=== PATIENT | male | born 1995 | race Caucasian/White ===

== ENCOUNTER 2017-04-16 10:59 | Emergency (ER) | payer MEDICAID, OTHER ==
[~2017-04-16] VITALS: Wt 63.6 kg
[2017-04-16] MEDS ORDERED: LIDOCAINE 1%/EPI 30 ML INJ INJ STA (11:51)
[2017-04-16] MEDS ORDERED: ACETAMINOPHEN 500 MG TAB PO STA (11:51)
[2017-04-16] MEDS ORDERED: ACET500C5 PO (13:06)
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
== END 2017-04-16 13:15 | disposition home or self-care (01) ==
LOC: FTE 10:59
DX: S01.111A Laceration without foreign body of right eyelid and periocular area, initial encounter (principal); W50.0XXA Accidental hit or strike by another person, initial encounter; Y92.9 Unspecified place or not applicable
CPT/HCPCS: 12013; Z7502; Z7610

== ENCOUNTER 2017-04-18 08:35 | Emergency (ER) | payer MEDICAID ==
[~2017-04-18] VITALS: Ht 165.1 cm; Wt 57.2 kg
[~2017-04-18 08:35] MED LIST: ACET500C5 PO
[2017-04-18 08:38] VITALS: Ht 165.1 cm; Wt 57.2 kg
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
== END 2017-04-18 09:53 | disposition home or self-care (01) ==
LOC: FTE 08:35
DX: Z48.01 Encounter for change or removal of surgical wound dressing (principal)
CPT/HCPCS: 99281